=== PATIENT | female | born 1980 | race Caucasian/White ===

== ENCOUNTER 2019-08-27 18:07 | Observation (INO) | payer OTHER ==
[2019-08-27] MEDS ORDERED: IPRATROPIUM 0.5 MG/2.5 ML NEBU INHALATION STA ×2 (18:28→20:35)
[2019-08-27] MEDS ORDERED: DEXAMETHASONE SOD PHOSPHATE 10 MG/ML 1 ML VIAL IV STA (18:28)
[2019-08-27] MEDS ORDERED: ALBUTEROL NEBULIZED 2.5 MG/3 ML INHALATION STA ×2 (18:28→20:35)
[2019-08-27 18:39] LABS: Basophils # (A) 0.1 k/uL (0-0.2); Basophils % (A) 1 %; Eosinophils # (A) 0.7 k/uL (0-0.7); Eosinophils % (A) 6 %; HCT 44.9 % (34.0-46.0); Lymphocytes # (A) 1.8 k/uL (1.0-4.8); Lymphocytes % (A) 16 %; MCH 27.9 pg (25.0-35.0); MCHC 33.3 g/dL (31.0-37.0); MCV 83.8 fL (80.0-100.0); Mean Platelet Volume 7.3; Monocytes # (A) 0.3 k/uL (0-1.0); Monocytes % (A) 3 %; Neutrophils # (A) 8.7 k/uL (1.3-7.7); Neutrophils % (A) 74 %; Platelet Count 287 k/uL (150-450); RBC 5.36 m/uL (3.80-5.40); RDW 13.7 % (11.5-15.5); WBC 11.7 k/uL (3.8-10.6)
--- NOTE | 2019-08-27 18:49 | XR ---
EXAMINATION TYPE: XR chest 2V DATE OF EXAM: 08/27/2019 COMPARISON: NONE HISTORY: Cough and shortness of breath. TECHNIQUE: Frontal and lateral views of the chest are obtained. FINDINGS: There is small focus of increased opacity left mid to lower lung region centrally. Right l leah is clear. No pleural effusion or pneumothorax seen bilaterally. The cardiac silhouette size is u pper limits of normal. Cholecystectomy clips are present. The osseous structures are intact. IMPRESSION: Cannot exclude an acute early infiltrate left midlung.
[2019-08-27 18:54] LABS: African American GFR (CKD) >90 (>60 ml/min/1.73 sqM); Anion Gap 10 mmol/L; Blood Urea Nitrogen 14 mg/dL (7-17); Calcium 9.5 mg/dL (8.4-10.2); Carbon Dioxide 23 mmol/L (22-30); Chloride 102 mmol/L (98-107); Glucose 132 mg/dL (74-99); Magnesium 1.9 mg/dL (1.6-2.3); Non-African American GFR(CKD) >90 (>60 ml/min/1.73 sqM); Sodium 135 mmol/L (137-145)
[2019-08-27] MEDS ORDERED: AZITHROMYCIN 500 MG in SODIUM CHLORIDE 0.9% 250 ML IVPB STA (19:10)
[2019-08-27] MEDS ORDERED: cefTRIAXone IN SWFI 1,000 MG/10 ML SYRINGE IVP STA (19:10)
--- NOTE | 2019-08-27 19:12 | ED ---
General Adult HPI - General Chief complaint: Shortness of Breath Stated complaint: MYLENE Time Seen by Provider: 08/27/19 18:19 Source: patient Mode of arrival: ambulatory Limitations: no limitations - History of Present Illness Initial comments: Dictation was produced using [employer] dictation software. please excuse any grammatical, word or spelling errors. Chief Complaint: 39-year-old male presents with worsening shortness of breath and cough History of Present Illness: Year old female she has been having cough and URI type symptoms for the past almost one month. She is been seen by urgent care doctors and primary care physicians. Patient completed a course of doxycycline. She does have nebulizers and rescue inhalers at home. She was seen a PCP however is not feeling better. Patient states that her cough is severe. She denies any history of asthma or COPD. She completed a course of doxycycline, amoxicillin and steroids. The ROS documented in this emergency department record has been reviewed and confirmed by me. Those systems with pertinent positive or negative responses have been documented in the HPI. All other systems are other negative and/or noncontributory. PHYSICAL EXAM: General Impression: Alert and oriented x3, not in acute distress HEENT: Normocephalic atraumatic, extra-ocular movements intact, pupils equal and reactive to light bilaterally, mucous membranes moist. Cardiovascular: Heart regular rate and rhythm, S1&S2 audible, no murmurs, rubs or gallops Chest: Mild diffuse wheezing Abdomen: Bowel sounds present, abdomen soft, non-tender, non-distended, no organomegaly Musculoskeletal: Pulses present and equal in all extremities, no peripheral edema Motor: no focal deficits noted Neurological: CN II-XII grossly intact, no focal motor or sensory deficits noted Skin: Intact with no visualized rashes Psych: Normal affect and mood ED course: 39 y Old female presents with persistent cough, shortness of breath at all signs upon arrival shows heart rate of 116, worse vital signs within ac ceptable limits. Laboratory evaluation obtained. it is 11.7. Metabolic panel is unremarkable. Urine hCG is negative. Influenza test negative. X-ray shows possible early acute infiltrate. Patient given IV antibiotics to treat community acquired pneumonia. She is given ceftriaxone and azithromycin. Patient reevaluated after first breathing treatment with persistent wheezing. She does however do sound more opened up. Patient still however showing some signs of respiratory distress. We will have patient admitted for [id number] breathing treatments and pulmonary consultation. She is understandable and agreeable to plan. - Related Data Allergies Allergy/AdvReac Type Severity Reaction Status Date / Time acetaminophen [From Tylenol] Allergy Rash/Hives Verified 08/27/19 18:14 aspirin Allergy Rash/Hives Verified 08/27/19 18:14 diphenhydramine Allergy Rash/Hives Verified 08/27/19 18:14 [From Benadryl] Review of Systems ROS Statement: Those systems with pertinent positive or pertinent negative responses have been documented in the HPI. ROS Other: All systems not noted in ROS Statement are negative. Past Medical History Past Medical History: No Reported History History of Any Multi-Drug Resistant Organisms: None Reported Past Surgical History: Cholecystectomy, Tonsillectomy Additional Past Surgical History / Comment(s): ovarian cysts Past Psychological History: No Psychological Hx Reported Smoking Status: Never smoker Past Alcohol Use History: None Reported Past Drug Use History: None Reported General Exam Limitations: no limitations Course Vital Signs 08/27/19 08/27/19 08/27/19 18:09 19:00 19:24 Temperature 99.0 F Pulse Rate 116 H 108 H 114 H Respiratory 20 Rate Blood Pressure O2 Sat by Pulse 97 Oximetry 08/27/19 19:33 Temperature Pulse Rate 108 H Respiratory 19 Rate Blood Pressure 130/69 O2 Sat by Pulse 96 Oximetry Medical Decision Making - Lab Data Result diagrams: 08/27/19 18:20 08/27/19 18:20 Lab Results 08/27/19 08/27/19 08/27/19 Range/Units 18:20 18:20 18:30 WBC 11.7 H (3.8-10.6) k/uL RBC 5.36 (3.80-5.40) m/uL Hgb 15.0 (11.4-16.0) gm/dL Hct 44.9 (34.0-46.0) % MCV 83.8 (80.0-100.0) fL MCH 27.9 (25.0-35.0) pg MCHC 33.3 (31.0-37.0) g/dL RDW 13.7 (11.5-15.5) % Plt Count 287 (150-450) k/uL Neutrophils % 74 % Lymphocytes % 16 % Monocytes % 3 % Eosinophils % 6 % Basophils % 1 % Neutrophils # 8.7 H (1.3-7.7) k/uL Lymphocytes # 1.8 (1.0-4.8) k/uL Monocytes # 0.3 (0-1.0) k/uL Eosinophils # 0.7 (0-0.7) k/uL Basophils # 0.1 (0-0.2) k/uL Sodium 135 L (137-145) mmol/L Potassium 4.0 (3.5-5.1) mmol/L Chloride 102 (98-107) mmol/L Carbon Dioxide 23 (22-30) mmol/L Anion Gap 10 mmol/L BUN 14 (7-17) mg/dL Creatinine 0.69 (0.52-1.04) mg/dL Est GFR (CKD-EPI)AfAm >90 (>60 ml/min/1.73 sqM) Est GFR (CKD-EPI)NonAf >90 (>60 ml/min/1.73 sqM) Glucose 132 H (74-99) mg/dL Calcium 9.5 (8.4-10.2) mg/dL Magnesium 1.9 (1.6-2.3) mg/dL Urine HCG, Qual Not Detected (Not Detectd) Influenza Type A RNA (Not Detectd) Influenza Type B (PCR) (Not Detectd) 08/27/19 Range/Units 18:30 WBC (3.8-10.6) k/uL RBC (3.80-5.40) m/uL Hgb (11.4-16.0) gm/dL Hct (34.0-46.0) % MCV (80.0-100.0) fL MCH (25.0-35.0) pg MCHC (31.0-37.0) g/dL RDW (11.5-15.5) % Plt Count (150-450) k/uL Neutrophils % % Lymphocytes % % Monocytes % % Eosinophils % % Basophils % % Neutrophils # (1.3-7.7) k/uL Lymphocytes # (1.0-4.8) k/uL Monocytes # (0-1.0) k/uL Eosinophils # (0-0.7) k/uL Basophils # (0-0.2) k/uL Sodium (137-145) mmol/L Potassium (3.5-5.1) mmol/L Chloride (98-107) mmol/L Carbon Dioxide (22-30) mmol/L Anion Gap mmol/L BUN (7-17) mg/dL Creatinine (0.52-1.04) mg/dL Est GFR (CKD-EPI)AfAm (>60 ml/min/1.73 sqM) Est GFR (CKD-EPI)NonAf (>60 ml/min/1.73 sqM) Glucose (74-99) mg/dL Calcium (8.4-10.2) mg/dL Magnesium (1.6-2.3) mg/dL Urine HCG, Qual (Not Detectd) Influenza Type A RNA Not Detected (Not Detectd) Influenza Type B (PCR) Not Detected (Not Detectd) Disposition Clinical Impression: Dyspnea Disposition: ADMITTED IP TO THIS HOSP Condition: Fair Referrals: Miguelina Blakely DO [Primary Care Provider] - 1-2 days Decision Time: 20:38
[2019-08-28] MEDS: IPRATROPIUM-ALBUTEROL 3 ML NEB INHALATION PRN ×5 (00:45→15:36)
[2019-08-28] MEDS ORDERED: methylPREDNISolone SOD SUCCI 40 MG/ML 1 ML VIAL IV SCH (11:01)
[2019-08-28] MEDS: FAMOTIDINE 20 MG TAB PO SCH ×2 (11:43→21:17)
[2019-08-28] MEDS: BENZONATATE 100 MG CAP PO PRN ×2 (11:44→21:17)
--- NOTE | 2019-08-28 12:14 | P.HPIM ---
History of Present Illness 39-year-old the pleasant female came in with compensative shortness of breath patient does have asthma is admitted for asthma exacerbation patient will was dealing with the other leg symptoms was an antibiotic as an outpatient including doxycycline. Patient is feeling much better today on exam patient has minimal expiratory wheezing and decreased air entry. Patient was started on azithromycin which will be continue continue to inhalational treatments today. Patient doesn't have any fevers chest x-ray did not show any obvious pneumonia patient doesn't have anyfever but has mild leukocytosis which is secondary to steroidsthe patientat asthma as a cared but was never diagnosed as an adult. Patient is comparing of cough with whitish sputum production Review of Systems REVIEW OF SYSTEMS: CONSTITUTIONAL: No fever, no malaise, no fatigue. HEENT: No recent visual problems or hearing problems. Denied any sore throat. CARDIOVASCULAR: No chest pain, orthopnea, PND, no palpitations, no syncope. PULMONARY: as mentioned in HPI GASTROINTESTINAL: No diarrhea, no nausea, no vomiting, no abdominal pain. NEUROLOGICAL: No headaches, no weakness, no numbness. HEMATOLOGICAL: Denies any bleeding or petechiae. GENITOURINARY: Denies any burning micturition, frequency, or urgency. MUSCULOSKELETAL/RHEUMATOLOGICAL: Denies any joint pain, swelling, or any muscle pain. ENDOCRINE: Denies any polyuria or polydipsia. The rest of the 14-point review of systems is negative. Past Medical History Past Medical History: No Reported History Additional Past Medical History / Comment(s): PCOS History of Any Multi-Drug Resistant Organisms: None Reported Past Surgical History: Cholecystectomy, Tonsillectomy Additional Past Surgical History / Comment(s): ovarian cysts, Breast Reduction, Fallopian Tube removed Past Psychological History: No Psychological Hx Reported Smoking Status: Never smoker Past Alcohol Use History: None Reported Past Drug Use History: None Reported Medications and Allergies Home Medications Medication Instructions Recorded Confirmed Type Albuterol Nebulized [Ventolin 2.5 mg INHALATION RT-Q8H PRN 08/27/19 08/27/19 History Nebulized] Albuterol Sulfate [Proair Hfa] 1 puff INHALATION RT-Q4H PRN 08/27/19 08/27/19 History Benzonatate [Benzonatate Perle] 200 mg PO TID PRN 08/27/19 08/27/19 History Doxycycline Hyclate [Vibramycin] 100 mg PO BID 08/27/19 08/27/19 History L.acidoph,Paracasei, B.lactis 1 cap PO DAILY 08/27/19 08/27/19 History [Probiotic] Loratadine [Claritin] 10 mg PO DAILY 08/27/19 08/27/19 History Multivitamins, Thera [Multivitamin 1 tab PO DAILY 08/27/19 08/27/19 History (formulary)] Phentermine 30mg 30 mg PO DAILY 08/27/19 08/27/19 History Allergies Allergy/AdvReac Type Severity Reaction Status Date / Time acetaminophen [From Tylenol] Allergy Rash/Hives Verified 08/27/19 18:14 aspirin Allergy Rash/Hives Verified 08/27/19 18:14 diphenhydramine Allergy Rash/Hives Verified 08/27/19 18:14 [From Benadryl] Physical Exam Vitals: Vital Signs Temp Pulse Pulse Resp BP BP Pulse Ox 08/28/19 11:26 92 08/28/19 11:14 92 08/28/19 08:12 96 08/28/19 08:00 92 94 L 08/28/19 07:00 98.5 F 89 18 120/76 91 L 08/28/19 05:09 88 08/28/19 05:04 88 08/28/19 04:55 76 08/28/19 01:49 98.2 F 104 H 19 115/72 92 L 08/28/19 00:58 110 H 08/28/19 00:48 93 L 08/28/19 00:45 97 08/27/19 23:56 98.5 F 109 H 19 111/72 96 08/27/19 21:11 112 H 08/27/19 21:05 98.9 F 80 19 128/74 96 08/27/19 20:54 110 H 08/27/19 19:33 108 H 19 130/69 96 08/27/19 19:24 114 H 08/27/19 19:00 108 H 08/27/19 18:09 99.0 F 116 H 20 97 Intake and Output 08/27/19 08/28/19 08/28/19 22:59 06:59 14:59 Other: Voiding Method Toilet Weight 126.824 kg 126.824 kg PHYSICAL EXAMINATION: GENERAL: The patient is alert and oriented x3, not in any acute distress.obese HEENT: Pupils are round and equally reacting to light. EOMI. No scleral icterus. No conjunctival pallor. Normocephalic, atraumatic. No pharyngeal erythema. No thyromegaly. CARDIOVASCULAR: S1 and S2 present. No murmurs, rubs, or gallops. PULMONARY: minimal expiratory wheezing and decreased air entry into bilateral lung pierre. ABDOMEN: Soft, nontender, nondistended, normoactive bowel sounds. No palpable organomegaly. MUSCULOSKELETAL: No joint swelling or deformity. EXTREMITIES: No cyanosis, clubbing, or pedal edema. NEUROLOGICAL: Gross neurological examination did not reveal any focal deficits. SKIN: No rashes. Results CBC & Chem 7: 08/27/19 18:20 08/27/19 18:20 Labs: Abnormal Lab Results - Last 24 Hours (Table) 08/27/19 08/27/19 Range/Units 18:20 18:20 WBC 11.7 H (3.8-10.6) k/uL Neutrophils # 8.7 H (1.3-7.7) k/uL Sodium 135 L (137-145) mmol/L Glucose 132 H (74-99) mg/dL Thrombosis Risk Factor Assmnt - Choose All That Apply Any of the Below Risk Factors Present?: Yes Each Factor Represents 1 point: Obesity (BMI >25) Other Risk Factors: No Other congenital or acquired thrombophilia - If yes, enter type in comment: No Thrombosis Risk Factor Assessment Total Risk Factor Score: 1 Thrombosis Risk Factor Assessment Level: Low Risk Assessment and Plan Plan: -acute asthma exacerbation: Patient and evidences structures initial treatments patient may have some restrictive lung disease 2 which is contributing to her shortness of breath. We'll continue to wean off oxygen and possibly discharge tomorrow on oral steroids patient will be continued on systemic steroids here and inhalational treatments.patient may need pulmonary function testing as an outpatient -obesity with possible restrictive lung disease -leukocytosis secondary to systemic steroids -Tachycardia secondary to shortness of breath -Acute hypoxic respiratory failure on admission secondary to asthma exacerbation GI prophylaxis with Protonix
--- NOTE | 2019-08-28 13:44 | P.CNPUL ---
History of Present Illness Consult date: 08/28/19 Requesting physician: Hong Summers Reason for consult: dyspnea, cough Chief complaint: Shortness of breath, cough, congestion History of present illness: This is a very pleasant 39-year-old female patient who follows with Dr. Blakely as her primary care provider. She has no significant past medical history. No home medications. Healthy overall. Lifelong nonsmoker. Earlier this month however she developed increasing shortness of breath cough chest tightness wheezing and congestion and was seen in the urgent care and treated with antibiotics and steroids. She returned to the urgent care again treated and subsequently seen by her PCP and treated a third time. She has been on doxycyc line, amoxicillin and steroids without much improvement. She presented here to the emergency room last evening with ongoing issues of productive cough with clear white sputum, chest tightness and wheezing. She was also given a nebulizer and rescue inhalers throughout this period without much improvement. She states she did have asthma as a small child but no issues and her teens, 20s or 30s. Chest x-ray revealed a small area of opacity in the left mid to lower lung region centrally. Possible early pneumonia. She's had a T-max of 99.0. White count 11.7. Hemoglobin 15.0. Creatinine 0.69. Urine hCG was negative. Influenza screen negative. She is seen today in consultation on the regular medical floor. She is awake and alert in no acute distress. Breathing a bit easier today compared to yesterday. Still dyspneic with conversation. Still with a dry nonproductive cough currently and expiratory wheezing. Requiring 3 L/m per nasal cannula to maintain O2 saturations in the 90s. No fever, chills or night sweats. No nausea, vomiting or diarrhea. No hemoptysis Review of Systems REVIEW OF SYSTEMS: CONSTITUTIONAL: Denies any recent significant weight loss or weight gain. EYES: Denies change in vision. EARS, NOSE, MOUTH, THROAT: Denies headaches, denies sore throat. CARDIOVASCULAR: Denies chest pain, palpitations or syncopal episodes. RESPIRATORY: Positive for shortness of breath, cough, congestion no hemoptysis. GASTROINTESTINAL: Denies change in appetite, denies abdominal pain GENITOURINARY: Denies hematuria, denies infections. MUSKULOSKELETAL: Denies pain, denies swelling. INTEGUMENTARY: Denies rash, denies eczema. NEUROLOGICAL: Denies recent memory loss, no recent seizure activity. PSYCHIATRIC: Denies anxiety, denies depression. HEMATOLOGIC/LYMPHATIC: Denies anemia, denies enlarged lymph nodes. Past Medical History Past Medical History: No Reported History Additional Past Medical History / Comment(s): PCOS History of Any Multi-Drug Resistant Organisms: None Reported Past Surgical History: Cholecystectomy, Tonsillectomy Additional Past Surgical History / Comment(s): ovarian cysts, Breast Reduction, Fallopian Tube removed Past Psychological History: No Psychological Hx Reported Smoking Status: Never smoker Past Alcohol Use History: None Reported Past Drug Use History: None Reported Additional History: Denies any significant family history. Medications and Allergies Home Medications Medication Instructions Recorded Confirmed Type Albuterol Nebulized [Ventolin 2.5 mg INHALATION RT-Q8H PRN 08/27/19 08/27/19 History Nebulized] Albuterol Sulfate [Proair Hfa] 1 puff INHALATION RT-Q4H PRN 08/27/19 08/27/19 History Benzonatate [Benzonatate Perle] 200 mg PO TID PRN 08/27/19 08/27/19 History Doxycycline Hyclate [Vibramycin] 100 mg PO BID 08/27/19 08/27/19 History L.acidoph,Paracasei, B.lactis 1 cap PO DAILY 08/27/19 08/27/19 History [Probiotic] Loratadine [Claritin] 10 mg PO DAILY 08/27/19 08/27/19 History Multivitamins, Thera [Multivitamin 1 tab PO DAILY 08/27/19 08/27/19 History (formulary)] Phentermine 30mg 30 mg PO DAILY 08/27/19 08/27/19 History Allergies Allergy/AdvReac Type Severity Reaction Status Date / Time acetaminophen [From Tylenol] Allergy Rash/Hives Verified 08/27/19 18:14 aspirin Allergy Rash/Hives Verified 08/27/19 18:14 diphenhydramine Allergy Rash/Hives Verified 08/27/19 18:14 [From Benadryl] Physical Exam Vitals: Vital Signs Temp Pulse Pulse Resp BP BP Pulse Ox 08/28/19 11:26 92 08/28/19 11:14 92 08/28/19 08:12 96 08/28/19 08:00 92 94 L 02/29/20 07:00 98.5 F 89 18 120/76 91 L 08/28/19 05:09 88 08/28/19 05:04 88 08/28/19 04:55 76 08/28/19 01:49 98.2 F 104 H 19 115/72 92 L 08/28/19 00:58 110 H 08/28/19 00:48 93 L 08/28/19 00:45 97 08/27/19 23:56 98.5 F 109 H 19 111/72 96 08/27/19 21:11 112 H 08/27/19 21:05 98.9 F 80 19 128/74 96 08/27/19 20:54 110 H 08/27/19 19:33 108 H 19 130/69 96 08/27/19 19:24 114 H 08/27/19 19:00 108 H 08/27/19 18:09 99.0 F 116 H 20 97 Intake and Output 08/27/19 08/28/19 08/28/19 22:59 06:59 14:59 Other: Voiding Method Toilet Weight 126.824 kg 126.824 kg GENERAL EXAM: Alert, very pleasant 39-year-old female patient, on 3 L nasal cannula, fairly comfortable in no apparent distress. HEAD: Normocephalic. EYES: Normal reaction of pupils, equal size. NOSE: Clear with pink turbinates. THROAT: Positive erythema no exudates. NECK: No masses, no JVD. CHEST: No chest wall deformity. LUNGS: Equal air entry with bilateral end expiratory wheeze CVS: S1 and S2 normal with no audible murmur, regular rhythm. ABDOMEN: No hepatosplenomegaly, normal bowel sounds, no guarding or rigidity. SPINE: No scoliosis or deformity SKIN: No rashes CENTRAL NERVOUS SYSTEM: No focal deficits, tone is normal in all 4 extremities. EXTREMITIES: There is no peripheral edema. No clubbing, no cyanosis. Peripheral pulses are intact. Results - Laboratory Findings CBC and BMP: 08/27/19 18:20 08/27/19 18:20 Abnormal lab findings: Abnormal Labs 08/27/19 08/27/19 18:20 18:20 WBC 11.7 H Neutrophils # 8.7 H Sodium 135 L Glucose 132 H - Diagnostic Findings Chest x-ray: image reviewed Assessment and Plan Assessment: 1 Acute upper respiratory infection with possible early infiltrate in the left lung, possible community-acquired pneumonia, failed outpatient treatment 2 Acute hypoxemic respiratory failure secondary to above 3 History of asthma as a child Plan: The patient was seen and evaluated by Dr. Ingram. Chest x-ray and labs reviewed. We'll continue with antibiotics in the form of azithromycin. Continue IV Solu-Medrol and bronchodilators. Possible postinfectious cough syndrome. Remains on Tessalon and Claritin. We will increase her activity as tolerated. Probable discharge in the next 24-48 hours. We will continue to follow make further recommendations based on his clinical status. I, the cosigning physician, performed a history & physical examination of the patient. Lungs sounds with bilateral end expiratory wheeze. Maintaining good O2 saturations in the 90s on 3 L/m per nasal. I discussed the assessment and plan of care with my nurse practitioner, Carley Mcconnell. I attest to the above consultation as dictated by her. Time with Patient: Greater than 30
[2019-08-28] MEDS: methylPREDNISolone SOD SUCCI 40 MG/ML 1 ML VIAL IV SCH (17:31)
[2019-08-28] MEDS ORDERED: AZITHROMYCIN 500 MG TAB PO SCH (18:00)
[2019-08-28] MEDS: BUDESONIDE 1 MG/2 ML NEBU INHALATION SCH (19:14)
[2019-08-28] MEDS ORDERED: MONTELUKAST 10 MG TAB PO SCH (21:00)
[2019-08-29] MEDS: methylPREDNISolone SOD SUCCI 40 MG/ML 1 ML VIAL IV SCH ×3 (00:19→12:21)
[2019-08-29] MEDS: IPRATROPIUM-ALBUTEROL 3 ML NEB INHALATION PRN ×2 (07:09→11:09)
[2019-08-29] MEDS: BUDESONIDE 1 MG/2 ML NEBU INHALATION SCH (07:09)
[2019-08-29 08:17] VITALS: BP 121/78; RESP 18; TEMP 97.8
[2019-08-29] MEDS ORDERED: LORATADINE 10 MG TAB PO SCH (09:00)
[2019-08-29] MEDS: FAMOTIDINE 20 MG TAB PO SCH (09:02)
[2019-08-29] MEDS: BENZONATATE 100 MG CAP PO PRN (09:02)
--- NOTE | 2019-08-29 09:48 | P.DS ---
Providers Date of admission: 08/27/19 20:36 Attending physician: Hong Summers Consults: 08/27/19 20:36 Consult Physician Routine Consulting Provider: Justyna Ingram Consult Reason/Comments: status asthmaticus Do you want consulting provider notified?: Yes Primary care physician: Miguelina Blakely DO Hospital Course: 39-year-old female is admitted for asthma exacerbation and the bronchitis failed outpatient therapy patient was hypoxic and required oxygen yesterday is not requiring any oxygen upon ambulation, patient will be be discharged today. PHYSICAL EXAMINATION: GENERAL: The patient is alert and oriented x3, not in any acute distress. Well developed, well nourished. HEENT: Pupils are round and equally reacting to light. EOMI. No scleral icterus. No conjunctival pallor. Normocephalic, atraumatic. No pharyngeal erythema. No thyromegaly. CARDIOVASCULAR: S1 and S2 present. No murmurs, rubs, or gallops. PULMONARY: Mildly decreased air entry into bilateral lung pierre ABDOMEN: Soft, nontender, nondistended, normoactive bowel sounds. No palpable organomegaly. MUSCULOSKELETAL: No joint swelling or deformity. EXTREMITIES: No cyanosis, clubbing, or pedal edema. NEUROLOGICAL: Gross neurological examination did not reveal any focal deficits. SKIN: No rashes. Assessment and Plan Plan: -acute asthma exacerbation: -obesity with possible restrictive lung disease -leukocytosis secondary to systemic steroids -Tachycardia secondary to shortness of breath which resolved -Acute hypoxic respiratory failure on admission secondary to asthma exacerbation Patient Condition at Discharge: Fair Plan - Discharge Summary Discharge Rx Participant: Yes New Discharge Prescriptions: New Ipratropium-Albuterol Nebulize [Duoneb 0.5 mg-3 mg/3 ml Soln] 1 neb INHALATION Q6HR PRN #90 neb PRN Reason: Shortness Of Breath Or Wheezing Famotidine [Pepcid] 20 mg PO BID #30 tablet predniSONE 10 mg PO DAILY #30 tab guaiFENesin-DM 100-10MG/5ML [Robitussin DM] 10 ml PO Q6HR PRN #1 bottle PRN Reason: Cough Montelukast [Singulair] 10 mg PO HS #10 tab Azithromycin [Zithromax] 500 mg PO DAILY@1800 #5 tab Continue Phentermine 30mg 30 mg PO DAILY Albuterol Sulfate [Proair Hfa] 1 puff INHALATION RT-Q4H PRN PRN Reason: Shortness Of Breath Benzonatate [Benzonatate Perle] 200 mg PO TID PRN PRN Reason: Cough L.acidoph,Paracasei, B.lactis [Probiotic] 1 cap PO DAILY Loratadine [Claritin] 10 mg PO DAILY Multivitamins, Thera [Multivitamin (formulary)] 1 tab PO DAILY Discontinued Albuterol Nebulized [Ventolin Nebulized] 2.5 mg INHALATION RT-Q8H PRN PRN Reason: Shortness Of Breath Doxycycline Hyclate [Vibramycin] 100 mg PO BID Discharge Medication List Albuterol Sulfate [Proair Hfa] 1 puff INHALATION RT-Q4H PRN 08/27/19 [History] Benzonatate [Benzonatate Perle] 200 mg PO TID PRN 08/27/19 [History] L.acidoph,Paracasei, B.lactis [Probiotic] 1 cap PO DAILY 08/27/19 [History] Loratadine [Claritin] 10 mg PO DAILY 08/27/19 [History] Multivitamins, Thera [Multivitamin (formulary)] 1 tab PO DAILY 08/27/19 [History] Phentermine 30mg 30 mg PO DAILY 08/27/19 [History] Azithromycin [Zithromax] 500 mg PO DAILY@1800 #5 tab 08/29/19 [Rx] Famotidine [Pepcid] 20 mg PO BID #30 tablet 08/29/19 [Rx] Ipratropium-Albuterol Nebulize [Duoneb 0.5 mg-3 mg/3 ml Soln] 1 neb INHALATION Q6HR PRN #90 neb 08/29/19 [Rx] Montelukast [Singulair] 10 mg PO HS #10 tab 08/29/19 [Rx] guaiFENesin-DM 100-10MG/5ML [Robitussin DM] 10 ml PO Q6HR PRN #1 bottle 08/29/19 [Rx] predniSONE 10 mg PO DAILY #30 tab 08/29/19 [Rx] Follow up Appointment(s)/Referral(s): Justyna Ingram MD [STAFF PHYSICIAN] - 1 Week Miguelina Blakely DO [Primary Care Provider] - 3 Days Discharge Disposition: HOME SELF-CARE
[2019-08-29 11:23] VITALS: PULSE 88
--- NOTE | 2019-08-29 12:48 | P.PN ---
Subjective Progress Note Date: 08/29/19 Principal diagnosis: 1 Acute upper respiratory infection with possible early infiltrate left lung, community-acquired, failed outpatient treatment This is a very pleasant 39-year-old female patient who follows with Dr. Blakely as her primary care provider. She has no significant past medical history. No home medications. Healthy overall. Lifelong nonsmoker. Earlier this month however she developed increasing shortness of breath cough chest tightness wheezing and congestion and was seen in the urgent care and treated with antibiotics and steroids. She returned to the urgent care again treated and subsequently seen by her PCP and treated a third time. She has been on doxycycline, amoxicillin and steroids without much improvement. She presented here to the emergency room last evening with ongoing issues of productive cough with clear white sputum, chest tightness and wheezing. She was also given a nebulizer and rescue inhalers throughout this period without much improvement. She states she did have asthma as a small child but no issues and her teens, 20s or 30s. Chest x-ray revealed a small area of opacity in the left mid to lower lung region centrally. Possible early pneumonia. She's had a T-max of 99.0. White count 11.7. Hemoglobin 15.0. Creatinine 0.69. Urine hCG was negative. Influenza screen negative. She is seen today in consultation on the regular medical floor. She is awake and alert in no acute distress. Breathing a bit easier today compared to yesterday. Still dyspneic with conversation. Still with a dry nonproductive cough currently and expiratory wheezing. Requiring 3 L/m per nasal cannula to maintain O2 saturations in the 90s. No fever, chills or night sweats. No nausea, vomiting or diarrhea. No hemoptysis. The patient is seen today 08/29/2019 in follow-up on the regular medical floor. She is currently sitting up in a chair at the bedside. Awake and alert in no acute distress. Breathing quite a bit better today compared to yesterday. Less bronchospastic and wheezy. Still with a loose nonproductive cough. No fever chills or night sweats. No hemoptysis. Up ambulating in the hallway without any significant desaturation. She's been maintained on DuoNeb inhalations, Pulmicort inhalations, IV Solu-Medrol. She is initiated on Singulair, Pepcid, Tessalon Perles. Antibiotics in the form of azithromycin. Objective - Vital Signs Vital signs: Vital Signs Temp 97.8 F 08/29/19 07:00 Pulse 88 08/29/19 11:22 Resp 18 08/29/19 09:15 BP 121/78 08/29/19 07:00 Pulse Ox 91 L 08/29/19 07:00 Intake & Output 08/28/19 08/29/19 08/29/19 18:59 06:59 18:59 Intake Total 650 Balance 650 Intake: Oral 650 Other: Voiding Method Toilet Toilet Toilet # Voids 1 1 - Exam GENERAL EXAM: Alert, very pleasant 39-year-old female patient, on room air, fairly comfortable in no apparent distress. HEAD: Normocephalic. EYES: Normal reaction of pupils, equal size. NOSE: Clear with pink turbinates. THROAT: Positive erythema no exudates. NECK: No masses, no JVD. CHEST: No chest wall deformity. LUNGS: Equal air entry with faint bilateral end expiratory wheeze CVS: S1 and S2 normal with no audible murmur, regular rhythm. ABDOMEN: No hepatosplenomegaly, normal bowel sounds, no guarding or rigidity. SPINE: No scoliosis or deformity SKIN: No rashes CENTRAL NERVOUS SYSTEM: No focal deficits, tone is normal in all 4 extremities. EXTREMITIES: There is no peripheral edema. No clubbing, no cyanosis. Peripheral pulses are intact. - Labs CBC & Chem 7: 08/27/19 18:20 08/27/19 18:20 Assessment and Plan Assessment: 1 Acute upper respiratory infection with possible early infiltrate in the left lung, possible community-acquired pneumonia, suspect postinfectious cough syndrome, failed outpatient treatment 2 Acute hypoxemic respiratory failure secondary to above 3 History of asthma as a child Plan: The patient was seen and evaluated by Dr. Ingram. She is cleared for discharge from the pulmonary standpoint. We'll continue with antibiotics in the form of azithromycin. Continue a prednisone taper starting at 40 mg daily for 4 days. Continue DuoNeb inhalations and Symbicort/Advair in the outpatient setting. Follow-up in our office in 1 week. She is encouraged to call sooner with any recurrence of symptoms or other questions or concerns. I, the cosigning physician, performed a history & physical examination of the patient. Lungs sounds with bilateral end expiratory wheeze. Maintaining good O2 saturations in the 90s on room air. I discussed the assessment and plan of care with my nurse practitioner, Carley Mcconnell. I attest to the above consultation as dictated by her.
== END 2019-08-29 14:05 | disposition home or self-care (01) ==
LOC: EC 18:07 → 4SSUR 20:36
PROVIDERS: ADMIT Hospitalist; ATTEND Hospitalist
DX: J45.901 Unspecified asthma with (acute) exacerbation (principal); J96.01 Acute respiratory failure with hypoxia; E66.9 Obesity, unspecified; E28.2 Polycystic ovarian syndrome; T38.0X5A Adverse effect of glucocorticoids and synthetic analogues, initial encounter; D72.828 Other elevated white blood cell count; Z88.8 Allergy status to other drugs, medicaments and biological substances; Z90.49 Acquired absence of other specified parts of digestive tract; Z90.89 Acquired absence of other organs; Z90.79 Acquired absence of other genital organ(s)
CPT/HCPCS: 96376 ×2; 96375 ×2; 96365; 96366; 99285; 36415; 94640 ×6; 94760; 80048; 83735; 85025; 81025; 87502; 71046; G0378 ×3; J1100; J2920 ×2; J0456; J0696

== ENCOUNTER 2021-12-04 17:23 | Emergency (ER) | payer OTHER ==
[2021-12-04] MEDS ORDERED: SODIUM CHLORIDE 0.9% 1,000 ML IV STA (19:59)
[2021-12-04] MEDS ORDERED: ONDANSETRON 4 MG/2 ML VIAL IVP STA (19:59)
[2021-12-04] MEDS ORDERED: MORPHINE SULFATE 2 MG/ML SYRINGE IVP STA (20:10)
--- NOTE | 2021-12-04 20:13 | ED ---
General Adult HPI - General Chief complaint: Abdominal Pain Stated complaint: Abd pain Time Seen by Provider: 12/04/21 19:41 Source: patient, RN notes reviewed Mode of arrival: ambulatory Limitations: no limitations - History of Present Illness Initial comments: 41-year-old female presents to the emergency department for evaluation of right lower quadrant abdominal pain that radiates to the right flank and back. Patient states this pain began three days prior to arrival and has been intermittent, but persistent in nature. States she has had episodes of nausea, but no vomiting. Patient states she does have a history of irregular menstrual periods and had one day of bleeding. States she is able to urinate without difficulty. Denies fever, chills, headache, chest pain, cough, shortness of breath, constipation, diarrhea, or lower extremity edema. - Related Data Previous Rx's Medication Instructions Recorded Ondansetron Odt [Zofran Odt] 4 mg PO Q8HR PRN #10 tab 12/05/21 traMADol HCl [Ultram] 50 mg PO Q6H PRN #12 tab 12/05/21 Allergies Allergy/AdvReac Type Severity Reaction Status Date / Time acetaminophen [From Tylenol] Allergy Rash/Hives Verified 12/04/21 22:00 aspirin Allergy Rash/Hives Verified 12/04/21 22:00 diphenhydramine Allergy Rash/Hives Verified 12/04/21 22:00 [From Benadryl] Review of Systems ROS Statement: Those systems with pertinent positive or pertinent negative responses have been documented in the HPI. ROS Other: All systems not noted in ROS Statement are negative. Past Medical History Past Medical History: No Reported History Additional Past Medical History / Comment(s): PCOS History of Any Multi-Drug Resistant Organisms: None Reported Past Surgical History: Cholecystectomy, Tonsillectomy Additional Past Surgical History / Comment(s): ovarian cysts, Breast Reduction, Fallopian Tube removed Past Psychological History: No Psychological Hx Reported Past Alcohol Use History: None Reported Past Drug Use History: None Reported General Exam Limitations: no limitations (Well-developed, well-nourished female in no acute distress. Initial temperature 98.1, pulse 74, respirations 18, blood pressure 121/66, pulse ox 99% on room air.) General appearance: alert, in no apparent distress Eye exam: Present: normal appearance. Absent: scleral icterus, conjunctival injection, periorbital swelling, periorbital tenderness ENT exam: Present: normal exam, normal oropharynx, mucous membranes moist Respiratory exam: Present: normal lung sounds bilaterally. Absent: respiratory distress, wheezes, rales, rhonchi, stridor, chest wall tenderness Cardiovascular Exam: Present: regular rate, normal rhythm, normal heart sounds. Absent: systolic murmur, diastolic murmur, rubs, gallop, clicks GI/Abdominal exam: Present: soft, normal bowel sounds. Absent: distended, tenderness, guarding, rebound, rigid Back exam: Present: normal inspection, CVA tenderness (R). Absent: CVA tenderness (L) Neurological exam: Present: alert, oriented X3 Psychiatric exam: Present: anxious Skin exam: Present: warm, dry, intact, normal color. Absent: rash Course Vital Signs 12/05/21 02:00 Pulse Rate 74 Blood Pressure 121/66 O2 Sat by Pulse 99 Oximetry - Reevaluation(s) Reevaluation #1: 12/04/21 19:52 Discussed pain management options with patient. She is hesitant to take anything that will mask her discomfort. Does have an ALLERGY to acetaminophen, aspirin, and Benadryl. States she is able to tolerate Motrin. Offered Toradol however patient's pain is tolerable. She also declined Zofran. Is content with IV fluids. Will order pain medication and nausea medication to have as standby if patient changes her mind. Medical Decision Making - Medical Decision Making 41-year-old female with a past medical history of cholecystectomy, PCOS, and ovarian cysts presents to the emergency Department with complaints of a 3 day history of right lower quadrant abdominal pain that radiates to the right flank. Upon exam, patient appears mildly uncomfortable, though declines any pain medication or nausea medicine. Given the location of her pain, CT of the abdomen and pelvis with contrast was obtained to rule out appendicitis. Did discuss possibility of renal calculus and ovarian cysts. Laboratory studies were reviewed with mild leukocytosis noted. Urinalysis shows moderate amount of blood and [address] shows an obstructing 5 mm renal calculus resulting in some hydronephrosis. Results were discussed with patient. She will be discharged home with pain control and encouragement increase fluids. She is instructed to follow up with her PCP for a recheck in the next 1-2 days. Strict return parameters were discussed in detail. Patient verbalizes understanding and agrees with this plan. Attending: Jorge. - Lab Data Result diagrams: 12/04/21 20:50 12/04/21 20:50 Lab Results 12/04/21 12/04/21 12/04/21 Range/Units 20:50 20:50 20:50 WBC 12.3 H (3.8-10.6) k/uL RBC 4.98 (3.80-5.40) m/uL Hgb 13.6 (11.4-16.0) gm/dL Hct 43.2 (34.0-46.0) % MCV 86.7 (80.0-100.0) fL MCH 27.3 (25.0-35.0) pg MCHC 31.5 (31.0-37.0) g/dL RDW 13.2 (11.5-15.5) % Plt Count 262 (150-450) k/uL MPV 7.1 Neutrophils % 65 % Lymphocytes % 24 % Monocytes % 5 % Eosinophils % 3 % Basophils % 1 % Neutrophils # 8.0 H (1.3-7.7) k/uL Lymphocytes # 3.0 (1.0-4.8) k/uL Monocytes # 0.6 (0-1.0) k/uL Eosinophils # 0.4 (0-0.7) k/uL Basophils # 0.2 (0-0.2) k/uL Sodium 138 (137-145) mmol/L Potassium 4.1 (3.5-5.1) mmol/L Chloride 107 (98-107) mmol/L Carbon Dioxide 25 (22-30) mmol/L Anion Gap 6 mmol/L BUN 18 H (7-17) mg/dL Creatinine 0.81 (0.52-1.04) mg/dL Est GFR (CKD-EPI)AfAm >90 (>60 ml/min/1.73 sqM) Est GFR (CKD-EPI)NonAf >90 (>60 ml/min/1.73 sqM) Glucose 93 (74-99) mg/dL Plasma Lactic Acid Tim 1.0 (0.7-2.0) mmol/L Calcium 8.8 (8.4-10.2) mg/dL Total Bilirubin 0.5 (0.2-1.3) mg/dL AST 23 (14-36) U/L ALT 20 (4-34) U/L Alkaline Phosphatase 87 (38-126) U/L Total Protein 7.1 (6.3-8.2) g/dL Albumin 4.1 (3.5-5.0) g/dL Lipase 32 (23-300) U/L Urine Color Urine Appearance (Clear) Urine pH (5.0-8.0) Ur Specific [place] (1.001-1.035) Urine Protein (Negative) Urine Glucose (UA) (Negative) Urine Ketones (Negative) Urine Blood (Negative) Urine Nitrite (Negative) Urine Bilirubin (Negative) Urine Urobilinogen (<2.0) mg/dL Ur Leukocyte Esterase (Negative) Urine RBC (0-5) /hpf Urine WBC (0-5) /hpf Ur Squamous Epith Cells (0-4) /hpf Urine Bacteria (None) /hpf Hyaline Casts (0-2) /lpf Urine Mucus (None) /hpf Urine HCG, Qual (Not Detectd) 12/04/21 12/04/21 Range/Units 22:47 22:47 WBC (3.8-10.6) k/uL RBC (3.80-5.40) m/uL Hgb (11.4-16.0) gm/dL Hct (34.0-46.0) % MCV (80.0-100.0) fL MCH (25.0-35.0) pg MCHC (31.0-37.0) g/dL RDW (11.5-15.5) % Plt Count (150-450) k/uL MPV Neutrophils % % Lymphocytes % % Monocytes % % Eosinophils % % Basophils % % Neutrophils # (1.3-7.7) k/uL Lymphocytes # (1.0-4.8) k/uL Monocytes # (0-1.0) k/uL Eosinophils # (0-0.7) k/uL Basophils # (0-0.2) k/uL Sodium (137-145) mmol/L Potassium (3.5-5.1) mmol/L Chloride (98-107) mmol/L Carbon Dioxide (22-30) mmol/L Anion Gap mmol/L BUN (7-17) mg/dL Creatinine (0.52-1.04) mg/dL Est GFR (CKD-EPI)AfAm (>60 ml/min/1.73 sqM) Est GFR (CKD-EPI)NonAf (>60 ml/min/1.73 sqM) Glucose (74-99) mg/dL Plasma Lactic Acid Tim (0.7-2.0) mmol/L Calcium (8.4-10.2) mg/dL Total Bilirubin (0.2-1.3) mg/dL AST (14-36) U/L ALT (4-34) U/L Alkaline Phosphatase (38-126) U/L Total Protein (6.3-8.2) g/dL Albumin (3.5-5.0) g/dL Lipase (23-300) U/L Urine Color Yellow Urine Appearance Clear (Clear) Urine pH 5.5 (5.0-8.0) Ur Specific [place] 1.023 (1.001-1.035) Urine Protein Trace H (Negative) Urine Glucose (UA) Negative (Negative) Urine Ketones Negative (Negative) Urine Blood Moderate H (Negative) Urine Nitrite Negative (Negative) Urine Bilirubin Negative (Negative) Urine Urobilinogen <2.0 (<2.0) mg/dL Ur Leukocyte Esterase Negative (Negative) Urine RBC 17 H (0-5) /hpf Urine WBC 3 (0-5) /hpf Ur Squamous Epith Cells 2 (0-4) /hpf Urine Bacteria Rare H (None) /hpf Hyaline Casts 1 (0-2) /lpf Urine Mucus Few H (None) /hpf Urine HCG, Qual Not Detected (Not Detectd) - Radiology Data Radiology results: report reviewed, image reviewed CT of the abdomen and pelvis with contrast was obtained. Report was reviewed in its entirety. Impression per Dr. Dougherty is small obstructing calculus at the right ureteral pelvic junction. No other calculus seen. Disposition Clinical Impression: Kidney stone on right side Disposition: HOME SELF-CARE Condition: Stable Instructions (If sedation given, give patient instructions): Kidney Stones (ED) Additional Instructions: Increase your intake of fluids. Take Motrin for mild-moderate pain. Ultram is for severe pain. Take Zofran if needed for nausea. Follow up with your PCP for a recheck by the end of the week. Return to the emergency department with any new, worsening, or concerning symptoms. Prescriptions: traMADol HCl [Ultram] 50 mg PO Q6H PRN #12 tab PRN Reason: Pain Ondansetron Odt [Zofran Odt] 4 mg PO Q8HR PRN #10 tab PRN Reason: Nausea Is patient prescribed a controlled substance at d/c from ED?: Yes When asked, does pt state using other controlled substances?: No If prescribed controlled substance>3 days was MAPS reviewed?: Prescribed <3 Days If opioid is for acute pain is fill amount 7 days or less?: Yes If Rx opioid, was Start Talking consent form obtained?: Yes Referrals: Goran Lowe DO [Primary Care Provider] - 1-2 days Time of Disposition: 01:42
[2021-12-04 20:59] LABS: Basophils # (A) 0.2 k/uL (0-0.2); Basophils % (A) 1 %; Eosinophils # (A) 0.4 k/uL (0-0.7); Eosinophils % (A) 3 %; HCT 43.2 % (34.0-46.0); HGB 13.6 gm/dL (11.4-16.0); Lymphocytes % (A) 24 %; MCH 27.3 pg (25.0-35.0); MCHC 31.5 g/dL (31.0-37.0); MCV 86.7 fL (80.0-100.0); Mean Platelet Volume 7.1; Monocytes # (A) 0.6 k/uL (0-1.0); Monocytes % (A) 5 %; Neutrophils % (A) 65 %; Platelet Count 262 k/uL (150-450); RBC 4.98 m/uL (3.80-5.40); RDW 13.2 % (11.5-15.5); WBC 12.3 k/uL (3.8-10.6)
[2021-12-04 21:07] LABS: ALT 20 U/L (4-34); AST 23 U/L (14-36); African American GFR (CKD) >90 (>60 ml/min/1.73 sqM); Albumin 4.1 g/dL (3.5-5.0); Alkaline Phosphatase 87 U/L (38-126); Anion Gap 6 mmol/L; Blood Urea Nitrogen 18 mg/dL (7-17); Calcium 8.8 mg/dL (8.4-10.2); Carbon Dioxide 25 mmol/L (22-30); Chloride 107 mmol/L (98-107); Glucose 93 mg/dL (74-99); Lipase 32 U/L (23-300); Non-African American GFR(CKD) >90 (>60 ml/min/1.73 sqM); Potassium 4.1 mmol/L (3.5-5.1); Sodium 138 mmol/L (137-145); Total Bilirubin 0.5 mg/dL (0.2-1.3); Total Protein 7.1 g/dL (6.3-8.2)
[2021-12-05 00:10] LABS: Appearance,Urine Clear (Clear); Bacteria,Urine Rare /hpf; Bilirubin,Urine Negative (Negative); Blood,Urine Moderate (Negative); Color,Urine Yellow; Glucose,Urine (UA) Negative (Negative); Hyaline Casts,Urine 1 /lpf (0-2); Ketones,Urine Negative (Negative); Leukocyte Esterase,Urine Negative (Negative); Mucus,Urine Few /hpf; Nitrite,Urine Negative (Negative); PH, Urine 5.5 (5.0-8.0); Protein,Urine Trace (Negative); RBC,Urine 17 /hpf (0-5); Specific Gravity,Urine 1.023 (1.001-1.035); Squamous Epithelial Cell,Urine 2 /hpf (0-4); Urobilinogen,Urine <2.0 mg/dL (<2.0); WBC,Urine 3 /hpf (0-5)
--- NOTE | 2021-12-05 01:02 | CT ---
EXAMINATION TYPE: CT abdomen pelvis w con DATE OF EXAM: 12/05/2021 COMPARISON: None HISTORY: RLQ pain CT DLP: 2945.5 mGycm Automated exposure control for dose reduction was used. CONTRAST: Performed with IV Contrast, patient injected with 100 mL of Isovue 300. Images obtained from the diaphragm to the floor of the pelvis with IV contrast. The lung bases are clear. No pleural effusion. Heart size is normal. No pericardial effusion. Liver spleen stomach pancreas appear intact. There are clips from cholecystectomy. The bile ducts are not dilated. There is no adrenal mass. Kidneys have normal size. There is right-sided hydronephrosis with obstruct ing 5 mm calculus at the ureteral pelvic junction. Delayed images show delayed right-sided pyelogram. Left kidney shows normal excretion. There is no retroperitoneal adenopathy. Bladder distends smoothl y. Uterus is anteverted and appears normal. There is no evidence of a pelvic mass. No free fluid in t he pelvis. No inguinal hernia. The lumbar vertebra have normal alignment. No compression fracture. Bony pelvis is intact. The hip home ints are intact. There is no sign of thickened appendix. IMPRESSION: Small obstructing calculus at the right ureteral pelvic junction. No other calculus seen.
[2021-12-05] MEDS ORDERED: ONDANSETRON 4 MG ODT STARTER PACK 2 TAB BTL PO STA (01:30)
[2021-12-05] MEDS ORDERED: traMADol 50 MG STARTER PACK 3 TAB BTL PO STA (01:30)
[2021-12-05 02:15] VITALS: BP 121/66; PULSE 74
== END 2021-12-05 02:15 | disposition home or self-care (01) ==
LOC: EC 17:23
DX: N13.2 Hydronephrosis with renal and ureteral calculous obstruction (principal); D72.829 Elevated white blood cell count, unspecified
CPT/HCPCS: 36415; 80053; 83605; 83690; 85025; 81001; 81025; 74177; 99284; 96360; S0119; Q9967